=== PATIENT | female | born 2000 | race Two or more races ===

== ENCOUNTER 2023-01-16 16:03 | Emergency (ER) | payer MEDICAID ==
[~2023-01-16] VITALS: Ht 162.6 cm; Wt 118.2 kg
[2023-01-16 16:11] VITALS: BP 115/64; PULSE 84; RESP 18; TEMP 98.2
[2023-01-16] MEDS ORDERED: PRED-554 PO ×2 (16:26→18:39)
[2023-01-16] MEDS ORDERED: ACYC-138 PO ×2 (16:26→18:39)
== END 2023-01-16 16:35 | disposition home or self-care (01) ==
LOC: EDBD 16:05 → EMS 16:05
DX: G51.0 Bell's palsy (principal)
CPT/HCPCS: 99283